=== PATIENT | male | born 2000 | race African-American/Black ===

== ENCOUNTER 2024-05-03 10:52 | Emergency (ER) | payer OTHER ==
[~2024-05-03] VITALS: Ht 170.2 cm; Wt 67.2 kg
[2024-05-03 11:02] VITALS: PULSE 63; RESP 16; TEMP 98.2; O2SAT 98
[2024-05-03] MEDS ORDERED: CYCLOBENZAPRINE5 MG PO (11:08)
== END 2024-05-03 11:25 | disposition home or self-care (01) ==
LOC: FSED 11:00
DX: S39.012A Strain of muscle, fascia and tendon of lower back, initial encounter (principal); R05.9 Cough, unspecified; G89.29 Other chronic pain
CPT/HCPCS: 99283